=== PATIENT | female | born 1955 | race Caucasian/White ===

== ENCOUNTER 2018-08-21 16:14 | Emergency (ER) | payer MEDICARE, OTHER ==
[2018-08-21 16:29] VITALS: BP 136/66
[2018-08-21] MEDS ORDERED: OXYCODONE-ACETAMINOPHEN 5-325 MG TABLET PO ONE (16:57)
--- NOTE | 2018-08-21 16:57 | ER Document Report ---
ED Medical Screen (RME) - General Chief Complaint: Abscess Stated Complaint: ABSCESS/BUTTOCKS Time Seen by Provider: 08/21/18 16:43 Mode of Arrival: Ambulatory Information source: Patient Notes: 62-year-old female with type 2 diabetes, COPD presents with right buttock pain and drainage. Patient states she developed right buttock pain 1 week prior to arrival. She admits to associated fever, chills, nausea. I have greeted and performed a rapid initial assessment of this patient. A comprehensive ED assessment and evaluation of the patient, analysis of test results and completion of medical decision making process we will be contacted by additional ED providers. PHYSICAL EXAMINATION: Vital signs reviewed GENERAL: Well-appearing, well-nourished and in no acute distress. LUNGS: No respiratory distress Musculoskeletal: Normal range of motion NEUROLOGICAL: Normal speech, normal gait. PSYCH: Normal mood, normal affect. TRAVEL OUTSIDE OF THE [place] IN LAST 30 DAYS: No - HPI Onset: Last week Onset/Duration: Gradual, Persistent Quality of pain: Burning Severity: Moderate Associated Symptoms: Body/muscle aches, Fever, Nausea Exacerbated by: Sitting, Movement Relieved by: Denies Similar symptoms previously: Yes Recently seen / treated by doctor: No - Related Data Smoking: Cigarettes Frequency of alcohol use: Occasional Drug Abuse: None Allergies/Adverse Reactions: erythromycin base Allergy (Verified 08/21/18 16:18) midazolam [From Versed] Allergy (Verified 08/21/18 16:18) NSAIDS (Non-Steroidal Anti-Inflamma Allergy (Verified 08/21/18 16:18) Sulfa (Sulfonamide Antibiotics) Allergy (Verified 08/21/18 16:18) Past Medical History - Social History Chew tobacco use (# tins/day): No Frequency of alcohol use: None Drug Abuse: None Pulmonary Medical History: Reports: Hx COPD Endocrine Medical History: Reports: Hx Diabetes Mellitus Type 2 Renal/ Medical History: Denies: Hx Peritoneal Dialysis Past Surgical History: Reports: Hx Abdominal Surgery - gastric sleeve, Hx Appendectomy, Hx Hysterectomy, Hx Orthopedic Surgery - carpal tunnel x2, shoulders bilat x2, R knee replacement Physical Exam - Vital signs Vitals: Temp Pulse Resp BP Pulse Ox 97.9 F 65 16 136/66 H 96 08/21/18 16:27 08/21/18 16:27 08/21/18 16:27 08/21/18 16:27 08/21/18 16:27 Course - Vital Signs Vital signs: Temp Pulse Resp BP Pulse Ox 97.9 F 65 16 136/66 H 96 08/21/18 16:27 08/21/18 16:27 08/21/18 16:27 08/21/18 16:27 08/21/18 16:27 Doctor's Discharge - Discharge Referrals: LOCAL[facility],NO [Primary Care Provider] - Follow up as needed
[2018-08-21] MEDS ORDERED: DOXYCYCLINE HYCLATE 100 MG TABLET PO ONE (17:57)
[2018-08-21] MEDS ORDERED: CEPHALEXIN 500 MG CAPSULE PO ONE (17:57)
--- NOTE | 2018-08-21 17:58 | ER Document Report ---
HPI - HPI Patient complains to provider of: Abscess Onset: Last week Onset/Duration: Better Quality of pain: Achy Pain Level: 5 Context: Patient complains of abscess to right buttock for the past week. Patient states area has opened up several days ago and has been continuing to drain. Patient states area of swelling and redness was initially much larger. Patient presents today because lesion has still been draining. 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 Associated Symptoms: Other - Abscess to right buttock. denies: Fever Exacerbated by: Movement Relieved by: Denies Similar symptoms previously: Yes Recently seen / treated by doctor: No - ROS ROS below otherwise negative: Yes Systems Reviewed and Negative: Yes All other systems reviewed and negative - CONSTITUTIONAL Constitutional: DENIES: Fever - MUSCULOSKELETAL Musculoskeletal: REPORTS: Extremity pain - DERM Skin Color: Normal Notes: Abscess Past Medical History - General Information source: Patient - Social History Smoking Status: Current Every Day Smoker Chew tobacco use (# tins/day): No Smoking Education Provided: Yes Frequency of alcohol use: None Drug Abuse: None Lives with: Family Family History: Reviewed & Not Pertinent Patient has suicidal ideation: No Patient has homicidal ideation: No Pulmonary Medical History: Reports: Hx COPD Endocrine Medical History: Reports: Hx Diabetes Mellitus Type 2 Renal/ Medical History: Denies: Hx Peritoneal Dialysis Past Surgical History: Reports: Hx Abdominal Surgery - gastric sleeve, Hx Appendectomy, Hx Hysterectomy, Hx Nose Surgery, Hx Orthopedic Surgery - carpal tunnel x2, shoulders bilat x2, R knee replacement, Hx Thyroid Surgery Vertical Provider Document - CONSTITUTIONAL Agree With Documented VS: Yes Exam Limitations: No Limitations General Appearance: WD/WN, No Apparent Distress - INFECTION CONTROL TRAVEL OUTSIDE OF THE [place] IN LAST 30 DAYS: No - HEENT HEENT: Atraumatic, Normocephalic - NECK Neck: Normal Inspection - RESPIRATORY Respiratory: Breath Sounds Normal, No Respiratory Distress - CARDIOVASCULAR Cardiovascular: Regular Rate, Regular Rhythm - GI/ABDOMEN Gastrointestinal: Abdomen Soft - MUSCULOSKELETAL/EXTREMETIES Musculoskeletal/Extremeties: MAEW - NEURO Level of Consciousness: Awake, Alert, Appropriate Motor/Sensory: No Motor Deficit - DERM Integumentary: Warm, Dry, Abscess - Large abscess to right buttock near the inguinal fold. No vaginal or perianal involvement. Patient with large open wound that measures 3 cm across and surrounding erythema. Course - Re-evaluation Re-evalutation: 08/21/18 18:20 Attempted to perform incision and drainage procedure. Patient states that she does not want I&D performed. Patient does have a spontaneously draining abscess at this time. Provider was going to attempt to explore wound to be sure that it would continue to drain and resolve. Patient declines procedure this time and prefers only to be treated with antibiotics. - Vital Signs Vital signs: Temp Pulse Resp BP Pulse Ox 97.9 F 65 16 136/66 H 96 08/21/18 16:27 08/21/18 16:27 08/21/18 16:27 08/21/18 16:27 08/21/18 16:27 Discharge - Discharge Clinical Impression: Abscess Condition: Stable Disposition: HOME, SELF-CARE Instructions: Abscess ([facility]), Cephalexin ([facility]), Doxycycline ([facility]), Oral Narcotic Medication ([facility]) Additional Instructions: Return immediately for any new or worsening symptoms Followup with your primary care provider, call tomorrow to make a followup appointment Prescriptions: Cephalexin Monohydrate [Keflex 500 mg Capsule] 500 mg PO Q6H 5 Days capsule Doxycycline Hyclate 100 mg PO BID #20 capsule Oxycodone HCl/Acetaminophen [Percocet 5-325 mg Tablet] 1 tab PO ASDIR PRN #15 tablet PRN Reason: Referrals: [facility] [Provider Group] - Follow up as needed
== END 2018-08-21 18:37 | disposition home or self-care (01) ==
LOC: ER 16:14
DX: L02.31 Cutaneous abscess of buttock (principal); R52 Pain, unspecified; E11.9 Type 2 diabetes mellitus without complications; I10 Essential (primary) hypertension; F17.200 Nicotine dependence, unspecified, uncomplicated; Z98.84 Bariatric surgery status
CPT/HCPCS: 99282; 87070; 87205; 87075; 87077; 87186; A9270 ×3